=== PATIENT | male | born 1970 | race Two or more races ===

== ENCOUNTER 2024-08-31 02:54 | Emergency (ER) | payer MEDICAID, OTHER ==
[~2024-08-31] VITALS: Ht 182.9 cm; Wt 95.8 kg
--- NOTE | 2024-08-31 03:13 | ED.PDOC ---
GI ASSESSMENT HPI Comments 53-year-old male came to ER for abdominal pain. Patient states for the past 5 days, he has been having intermittent episodes of left upper quadrant abdominal pain, nonradiating, associated bouts of nausea and vomiting. States he could lead keep anything in. Vomits phlegm most of the time. Vomit the usually worse during mornings and persists throughout the day. Self medicated with omeprazole, pantoprazole, baking soda among others but offers no relief. Denies any abdominal surgeries. Chief Complaint: Abdominal pain Time Seen by MD: 03:12 Reviewed Notes: Nurses Notes Allergies: Coded Allergies: No Known Drug Allergy (Verified Allergy, Unknown, 08/31/24) Home Meds Active Scripts Ondansetron Odt 4MG Tab (ZOFRAN PO) 4 Mg Tb, 4 MG PO Q6HPRN PRN, #14 TAB ODT TAB-DISSOLVE IN MOUTH, THEN SWALLOW Prov:ANETTE FOWLER MD 08/31/24 Information Source: Patient Mode of Arrival: Ambulatory Timing: Days (5) Duration: Intermittent Prehospital treatment: None Vomitus: Watery Stool: Normal Severity: Moderate Recent: None Recent Hx of: None Pain Location: LUQ Modifying Factors: Nothing Associated sign and symptoms: Nausea, Vomiting, Abdominal Pain Past Medical History PAST MEDICAL HISTORY: CHF, HTN Surgical History: Denies all surgeries Family History Family History: Reviewed,noncontributory to illness Social History Smoker: Non-Smoker Alcohol: Rarely Drugs: Denies Drug Use Lives In: Home Constitutional: denies: chills, diaphoresis, fatigue, fever, malaise, sweats, weakness, others EENTM: denies: blurred vision, double vision, ear bleeding, ear discharge, ear drainage, ear pain, ear ringing, eye pain, eye redness, hearing loss, mouth pain, mouth swelling, nasal discharge, nose bleeding, nose congestion, nose pain, photophobia, tearing, throat pain, throat swelling, voice changes, others Respiratory: denies: cough, hemoptysis, orthopnea, SOB at rest, shortness of breath, SOB with excertion, stridor, wheezing, others Cardiovascular: denies: chest pain, dizzy spells, diaphoresis, Dyspnea on exertion, edema, irregular heart beat, left arm pain, lightheadedness, palpitations, PND, syncope, others Gastrointestinal: reports: abdominal pain, nausea, poor appetite, vomiting; denies: abdomen distended, blood streaked bowels, constipated, diarrhea, dysphagia, difficulty swallowing, hematemesis, melena, poor fluid intake, rectal bleeding, rectal pain, others Genitourinary: denies: burning, dysuria, flank pain, frequency, hematuria, incontinence, penile discharge, penile sore, pain, testicle pain, testicle swelling, urgency, others Neurological: denies: dizziness, fainting, headache, left sided numbness, left sided weakness, numbness, paresthesia, pre-existing deficit, right sided numbness, right sided weakness, seizure, speech problems, tingling, tremors, weakness, others Musculoskeletal: denies: back pain, gout, joint pain, joint swelling, muscle pain, muscle stiffness, neck pain, others Integumetry: denies: bruises, change in color, change in hair/nails, dryness, laceration, lesions, lumps, rash, wounds, others Allergic/Immunocompromised: denies: Difficulty Healing, Frequent Infections, Hives, Itching, others Hematologic/Lymphatic: denies: anemia, blood clots, easy bleeding, easy bruising, swollen glands, others Endocrine: denies: excessive hunger, excessive sweating, excessive thirst, excessive urination, flushing, intolerance to cold, intolerance to heat, unexplained weight gain, unexplained weight loss, others Psychiatric: denies: anxiety, bipolar disorder, depression, hopeless, panic disorder, schizophrenia, sleepless, suicidal, others Physical Exam General Appearance: No Apparent Distress, Normal HEENT: Normal ENT Inspection, Pharynx Normal, TMs Normal Neck: Full Range of Motion, Non-Tender, Normal, Normal Inspection Respiratory: Chest Non-Tender, Lungs Clear, No Accessory Muscle Use, No Respiratory Distress, Normal Breath Sounds Cardiovascular: No Edema, No JVD, No Murmur, No Gallop, Normal Peripheral Pulses, Regular Rate/Rhythm Breast Exam: Deferred Gastrointestinal: LUQ, No Organomegaly, No Pulsatile Mass, Normal Bowel Sounds, Soft, Tenderness Genitalia: Deferred Pelvic: Deferred Rectal: Deferred Extremities: No calf tenderness, Normal capillary refill, Normal inspection, Normal range of motion, Non-tender, No pedal edema Musculoskeletal : Apperance: Normal Neurologic: Alert, white sourer II-XII nml as Tested, No Motor Deficits, Normal Affect, Normal Mood, No Sensory Deficits Cerebellar Function: Normal Reflexes: Normal Skin: Dry, Normal Color, Warm Lymphatic: No Adenopathy Was a procedure done? Was a procedure done?: No GI differential Dx Differential Diagnosis: Constipation, Diverticular disease, Gastritis/PUD, Gastroenteritis, UTI, Urolithiasis, Dehydration, Electrolyte Imbalance, Food Poisoning X-Ray, Labs, Meds, VS Vital Signs Date Time Temp Pulse Resp B/P (MAP) Pulse Ox O2 Delivery O2 Flow Rate FiO2 08/31/24 08:33 97.9 73 18 157/99 (118) 93 97.9 08/31/24 08:30 73 16 93 Room Air* 0 21 08/31/24 05:50 84 20 93 Room Air* 0 21 08/31/24 05:49 98.4 84 20 149/90 (109) 93 98.4 08/31/24 05:23 97.9 89 20 126/64 (84) 91 97.9 08/31/24 03:12 98.2 80 16 153/91 (111) 97 Lab Test 08/31/24 05:00 08/31/24 03:38 08/31/24 03:20 Range/Units Troponin I High Sensitivity < 3 L < 3 L </=54 ng/L Urine Color Yellow Yellow Urine Clarity Clear Clear Urine pH 6.5 5.0-9.0 Urine Specific [place] 1.026 1.001-1.035 Urine Protein Negative Negative Urine Ketones Negative Negative Urine Blood Negative Negative /uL Urine Nitrite Negative Negative Urine Bilirubin Negative Negative Urine Urobilinogen Normal Negative mg/dL Urine Leukocyte Esterase Negative Negative /uL Urine RBC 2 0 - 3 /hpf Urine Microscopic WBC < 1 0-3 /HPF Urine Squamous Epithelial Cells None seen <5 /hpf Urine Bacteria None seen None Seen /hpf Urine Mucus Few None Seen Urine Glucose Normal Normal mg/dL White Blood Count 5.8 4.4-10.8 10^3/uL Red Blood Count 4.93 4.5-5.90 10^6/uL Hemoglobin 14.0 13.5-17.5 g/dL Hematocrit 42.1 41.0-53.0 % Mean Corpuscular Volume 85.4 80.0-100.0 fL Mean Corpuscular Hemoglobin 28.3 28.0-32.0 pg Mean Corpuscular Hemoglobin Concent 33.2 32.0-36.0 g/dL Red Cell Distribution Width 16.1 H 11.8-14.3 % Platelet Count 159 140-450 10^3/uL Mean Platelet Volume 7.2 6.9-10.8 fL Neutrophils (%) (Auto) 58.7 37.0-80.0 % Lymphocytes (%) (Auto) 27.9 10.0-50.0 % Monocytes (%) (Auto) 10.7 0.0-12.0 % Eosinophils (%) (Auto) 2.0 0.0-7.0 % Basophils (%) (Auto) 0.7 0.0-2.0 % Neutrophils # (Auto) 3.4 1.6-8.6 10 ^3/uL Lymphocytes # (Auto) 1.6 0.4-5.4 10 ^3/uL Monocytes # (Auto) 0.6 0-1.3 10 ^3/uL Eosinophils # (Auto) 0.1 0-0.8 10 ^3/uL Basophils # (Auto) 0 0-0.2 10 ^3/uL Nucleated Red Blood Cells 0.1 % Sodium Level 139 136-145 mmol/L Potassium Level 4.1 3.5-5.1 mmol/L Chloride Level 106 98-107 mmol/L Carbon Dioxide Level 26 20-31 mmol/L Anion Gap 7 5-15 Blood Urea Nitrogen 16 9-23 mg/dL Creatinine 0.92 0.700-1.30 mg/dL Glomerular Filtration Rate Calc 98 >90 mL/min BUN/Creatinine Ratio 17.4 10.0-20.0 Serum Glucose 87 74-106 mg/dL Calcium Level 9.3 8.7-10.4 mg/dL Total Bilirubin 1.2 H 0.2-1.0 mg/dL Aspartate Amino Transferase (AST) 25 13-40 U/L Alanine Aminotransferase (ALT) 20 7-40 U/L Alkaline Phosphatase 100 46-116 U/L B-Type Natriuretic Peptide 30.95 0-100 pg/mL Total Protein 6.7 5.7-8.2 g/dL Albumin 4.2 3.2-4.8 g/dL Current Medications Medications (Trade) Dose Ordered Sig/Isaac Route Start Time Stop Time Status Last Admin Ondansetron HCl (Zofran Po) 4 mg ONCE ONCE PO 08/31/24 08:45 08/31/24 08:46 DC 08/31/24 08:54 Dr. Fowler: I took over patient's care from Dr. Garcia at 6:00 a.m.. I was asked to follow up on CT abdomen and pelvis. At this time blood work demonstrates mild elevated bilirubin but otherwise largely unremarkable. There was no increased WBC count creatinine is normal glucose is normal. The CT abdomen pelvis demonstrates hiatal hernia. I spoke with the patient extensively myself, he reported nausea, gagging and states he has tried many [id number] medications including pantoprazole and omeprazole. Based on his symptoms I suspect they are likely from the hiatal hernia. I have given him Zofran and GI cocktail in the ER and on re-evaluation patient's symptoms did improve. I have given him prescription for Zofran at home. I advised him that he should take omeprazole daily. 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 Also advised him he may require surgery for his hiatal hernia if it is very problematic. Advised him to try the Zofran and omeprazole 1st. Considered possible liver disease however he is nontender in the right upper quadrant and does not report pain in that side. At this time I have given him a copy of his CT report. Advised him to follow up with his dot compliance coordinator and PCP and return to the ER if symptoms worsen or persist. All questions have been answered by the patient. Patient agreeable. Time of 1ST Reevaluation: 03:07 Reevaluation 1ST: Unchanged Time of 2ND Reevaluation: 09:05 Reevaluation 2ND: Unchanged Time of 3RD Reevaluation: 09:25 Reevaluation 3RD: Improved Patient Education/Counseling: Diagnosis, Treatment Family Education/Counseling: No Family Present Departure 1 Departure Time of Disposition: :25 Impression: Primary Impression: Hiatal hernia Disposition: HOME / SELF CARE / HOMELESS Condition: Stable Additional Instructions: PATIENT: ILA SIMEON ACCT: [id number] UNIT: [id number] : 1970 LOC: ER ROOM / BED: / AGE / SEX: 53 / M ADM STATUS: REG ER SERVICE [id number] ORDERING PHYSICIAN: SANTY YARBROUGH MD PROCEDURE(s): ABPLIV - CT AB PEL WITH IV CON ONLY REASON: luq pain ORDER NUMBER(s): [id number], ACCESSION NUMBER(s): [id number] Exam: CT CT AB PEL WITH IV CON ONLY History: luq pain Comparison Study: None available at time of dictation. Technique: Multidetector spiral CT of the abdomen was performed from lung bases to pubic symphysis. Axial imaging was performed with intravenous contrast following the uneventful administration of 100 ml Omnipaque 300. Coronal and sagittal multiplanar reformats were obtained from the axial data set by the technologist. Radiation Dose : 1. Abdomen/Pelvis: CTDIvol 16.43 mGy, DLP 825.1 mGy*cm. Findings: Lung Bases: Lung bases are clear. Visualized portions of the heart and pericardium are unremarkable. Liver: The liver is normal in size. No focal lesions. Gallbladder and Biliary Tree: The gallbladder is unremarkable. No intrahepatic or extrahepatic biliary ductal dilatation. Spleen: Unremarkable Pancreas: The pancreas enhances normally and there are no focal lesions. The main pancreatic duct is not dilated Adrenal Glands: Unremarkable Kidneys: Kidneys enhance symmetrically. No calculi or hydronephrosis. Subcentimeter left renal cysts. GI tract: There is a small hiatal hernia. No evidence of small bowel wall thickening or abnormal dilatation to suggest bowel obstruction. The colon is unremarkable. The appendix is visualized and is normal. Peritoneum/mesentery/retroperitoneum. No evidence of free intraperitoneal air. No ascites. No evidence of suspicious lymphadenopathy. Abdominal Wall: Unremarkable. Vasculature: Abdominal aorta and main branches are unremarkable. Normal vascular enhancement. Urinary Bladder: Mild circumferential wall thickening of the urinary bladder. Pelvic Organs: Unremarkable Musculoskeletal: No aggressive focal bony lesions, acute fractures or dislocation. Intervertebral disc space narrowing at L4-L5 and L5-S1. IMPRESSION: 1. No acute abdominal or pelvic findings. 2. Hiatal hernia. 3. Wall thickening of the urinary bladder. This may related to wall thickening. However cystitis is not excluded. ATED BY: POORNIMA JARRELL MD DICTATED DATE/TIME: 08/31/24815 SIGNED BY: POORNIMA JARRELL MD SIGNED DATE/TIME: 08/31/24815 e-Prescriptions Ondansetron Odt 4MG Tab (ZOFRAN PO) 4 Mg Tb 4 MG PO Q6HPRN PRN, #14 TAB ODT TAB-DISSOLVE IN MOUTH, THEN SWALLOW Prov: ANETTE FOWLER MD 08/31/24 Discharged With: Self Critical Care Note Critical Care Time?: No Stability Stability form required: No Heart Score Heart Score: Heart Score Response (Comments) Value History N/A 0 EKG N/A 0 Age N/A 0 Risk Factors N/A 0 Troponin N/A 0 Total 0 I personally scribed for SANTY YARBROUGH MD ([email or web address]) on 08/31/24 at 03:13. Electronically submitted by Remberto Bull ([email or web address]). I personally scribed for SANTY YARBROUGH MD ([email or web address]) on 08/31/24 at 09:04. Electronically submitted by Arnol Breen ([email or web address]). I personally scribed for SANTY YARBROUGH MD ([email or web address]) on 08/31/24 at 09:05. Electronically submitted by Arnol Breen ([email or web address]). SANTY YARBROUGH MD Aug 31, 2024 03:13 ANETTE FOWLER MD Aug 31, 2024 09:11
[2024-08-31 03:33] LABS: Basophils # (auto) 0 10 ^3/uL (0-0.2); Basophils % (auto) 0.7 % (0.0-2.0); Eosinophils # (auto) 0.1 10 ^3/uL (0-0.8); Hematocrit 42.1 % (41.0-53.0); Lymphocytes # (auto) 1.6 10 ^3/uL (0.4-5.4); Lymphocytes % (auto) 27.9 % (10.0-50.0); Mean Corpuscular Hemoglobin 28.3 pg (28.0-32.0); Mean Corpuscular Hgb Conc. 33.2 g/dL (32.0-36.0); Mean Corpuscular Volume 85.4 fL (80.0-100.0); Monocytes # (auto) 0.6 10 ^3/uL (0-1.3); Monocytes % (auto) 10.7 % (0.0-12.0); Neutrophils # (auto) 3.4 10 ^3/uL (1.6-8.6); Neutrophils % (auto) 58.7 % (37.0-80.0); Nucleated Red Blood Cells % 0.1 %; Platelet Count (auto) 159 10^3/uL (140-450); Red Blood Cells 4.93 10^6/uL (4.5-5.90); Red Cell Distribution Width 16.1 % (11.8-14.3); White Blood Cell 5.8 10^3/uL (4.4-10.8)
[2024-08-31 03:40] LABS: Urine Bacteria None Seen /hpf (None Seen)
[2024-08-31 04:07] LABS: Alanine Aminotransferase 20 U/L (7-40); Albumin 4.2 g/dL (3.2-4.8); Alkaline Phosphatase 100 U/L (46-116); Anion Gap 7 (5-15); Aspartate Aminotransferase 25 U/L (13-40); BUN/Creatinine Ratio 17.4 (10.0-20.0); Blood Urea Nitrogen 16 mg/dL (9-23); Calcium 9.3 mg/dL (8.7-10.4); Carbon Dioxide 26 mmol/L (20-31); Chloride 106 mmol/L (98-107); Glucose 87 mg/dL (74-106); Potassium 4.1 mmol/L (3.5-5.1); Sodium 139 mmol/L (136-145)
[2024-08-31 04:08] LABS: Bilirubin, Total 1.2 mg/dL (0.2-1.0); Total Protein 6.7 g/dL (5.7-8.2)
[2024-08-31 04:21] LABS: Urine Blood Negative /uL (Negative); Urine Clarity Clear (Clear); Urine Color Yellow (Yellow); Urine Mucus FEW (None Seen); Urine Protein, UAD Negative (Negative); Urine Specific Gravity 1.026 (1.001-1.035); Urine Squamous Epithelial Cell None Seen /hpf (<5); Urine Urobilinogen Normal (Negative); Urine WBC < 1 /HPF (0-3); Urine pH 6.5 (5.0-9.0)
--- NOTE | 2024-08-31 05:12 | DVH ---
XY CHEST TWO VIEWS ROUTINE CLINICAL HISTORY: abdominal pain COMPARISON: None TECHNIQUE: Frontal and lateral view of the chest was obtained FINDINGS: Lines and Tubes: None Lungs: No focal consolidation. Pleura: No effusion. No pneumothorax. Cardiomediastinal contours: Unremarkable Bones: No acute osseous abnormality. IMPRESSION: 1. No acute cardiopulmonary disease.
[2024-08-31 05:50] VITALS: PULSE 84; RESP 20; O2SAT 93
[2024-08-31] MEDS: IOHEXOL 300 MG/ML 100ML BOTTLE IJ ONE (07:20)
--- NOTE | 2024-08-31 08:19 | DVH ---
Exam: CT CT AB PEL WITH IV CON ONLY History: luq pain Comparison Study: None available at time of dictation. Technique: Multidetector spiral CT of the abdomen was performed from lung bases to pubic symphysis. Axial imaging was performed with intravenous contrast following the uneventful administration of 100 ml Omnipaque 300. Coronal and sagittal multiplanar reformats were obtained from the axial data set b y the technologist. Radiation Dose : 1. Abdomen/Pelvis: CTDIvol 16.43 mGy, DLP 825.1 mGy*cm. Findings: Lung Bases: Lung bases are clear. Visualized portions of the heart and pericardium are unremarkable. Liver: The liver is normal in size. No focal lesions. Gallbladder and Biliary Tree: The gallbladder is unremarkable. No intrahepatic or extrahepatic bilia ry ductal dilatation. Spleen: Unremarkable Pancreas: The pancreas enhances normally and there are no focal lesions. The main pancreatic duct i s not dilated Adrenal Glands: Unremarkable Kidneys: Kidneys enhance symmetrically. No calculi or hydronephrosis. Subcentimeter left renal cysts . GI tract: There is a small hiatal hernia. No evidence of small bowel wall thickening or abnormal dila tation to suggest bowel obstruction. The colon is unremarkable. The appendix is visualized and is nor mal. Peritoneum/mesentery/retroperitoneum. No evidence of free intraperitoneal air. No ascites. No evidenc e of suspicious lymphadenopathy. Abdominal Wall: Unremarkable. Vasculature: Abdominal aorta and main branches are unremarkable. Normal vascular enhancement. Urinary Bladder: Mild circumferential wall thickening of the urinary bladder. Pelvic Organs: Unremarkable Musculoskeletal: No aggressive focal bony lesions, acute fractures or dislocation. Intervertebral dis c space narrowing at L4-L5 and L5-S1. IMPRESSION: 1. No acute abdominal or pelvic findings. 2. Hiatal hernia. 3. Wall thickening of the urinary bladder. This may related to wall thickening. However cystitis is not excluded.
[2024-08-31 08:30] VITALS: PULSE 73; RESP 16; O2SAT 93
[2024-08-31] MEDS: ONDANSETRON ODT 4 MG TAB PO ONE (08:54)
[2024-08-31] MEDS ORDERED: ZOFR4T PO (09:06)
[2024-08-31] MEDS: MAALOX PLUS or MAALOX 30 ML PO ONE (09:29)
[2024-08-31] MEDS: DICYCLOMINE HCL 10 MG CAP PO ONE (09:29)
[2024-08-31] MEDS: LIDOCAINE VISCOUS 2% 15ML UD MT ONE (09:30)
[2024-08-31 09:37] VITALS: BP 118/88; PULSE 88; RESP 18; TEMP 97.9; O2SAT 98
== END 2024-08-31 09:39 | disposition home or self-care (01) ==
LOC: ER 02:54
DX: K44.9 Diaphragmatic hernia without obstruction or gangrene (principal); I11.0 Hypertensive heart disease with heart failure; I50.9 Heart failure, unspecified; Z79.899 Other long term (current) drug therapy
CPT/HCPCS: 36415; 71046; 74177; 80053; 81001; 83880; 84484; 85025; 99285; J0500; Q0162; Q9967